=== PATIENT | female | born 1955 | race Caucasian/White ===

== ENCOUNTER 2023-06-05 10:21 | Emergency (ER) | payer MEDICARE, OTHER ==
[~2023-06-05] VITALS: Ht 152.4 cm; Wt 68.2 kg
[2023-06-05] MEDS ORDERED: GABA-1201 PO (10:29)
[2023-06-05] MEDS ORDERED: ACYC-138 PO (10:29)
[2023-06-05] MEDS ORDERED: KETOROLAC TROMETHAMINE 30 MG/ML VIAL IM ONE (12:45)
[2023-06-05 13:45] VITALS: BP 127/78; PULSE 65; RESP 18; TEMP 98.3
== END 2023-06-05 13:56 | disposition home or self-care (01) ==
LOC: EMS 10:27
DX: B02.9 Zoster without complications (principal); G62.9 Polyneuropathy, unspecified; Z90.710 Acquired absence of both cervix and uterus
CPT/HCPCS: 99283; 96372; J1885